=== PATIENT | male | born 1965 | race Caucasian/White ===

== ENCOUNTER → 2016-10-03 | Outpatient (CLI) | payer OTHER ==
[~2016-10-03] MED LIST: ASPIRIN81 MG PO; COMBIVENT U/D3 ML INH; DOCUSATE SODIU100 MG PO; LISINOPRIL10 MG PO; LOPRESSOR HCT1 EACH PO; NICOTINE TRANSD21 MG EXT; NITROGLYCERIN0.4 MG SL; PATANOL5 ML OP; POTASSIUM CHLO10 ME1 PO; SYMBICORT INH
--- NOTE | ~2016-10-03 | CR63 ---
[facility] A Service of [facility] & [facility] RADIOLOGY TEXT RESULTS PATIENT: MELINA RICHARDSON LOCATION: [facility] : 65 UNIT #: [id number] AGE: [address]: George Singh MD SEX: M ORDER DR: [id number] [facility] [address] [place], [place] [address] [id number] O MR#: [id number] Acc #: [id number] NAME: MELINA RICHARDSON : 1965 SEX: M STUDY DATE/TIME: 10/03/2016 15:42 UNIT: [facility] ROOM: STUDY DESCRIPTION: CR Chest 2 View Attending Physician: George Singh M.D. Referring Physician: George Singh M.D. Ordering Physician: George Singh M.D. Primary Care Physician: Yasir Portillo M.D. MEDICAL IMAGING REPORT This report is preliminary unless electronic signature is present EXAM PA and lateral chest radiograph, 10/03/2016 COMPARISON Portal radiograph 08/26/2014 HISTORY Heart failure, hypertension, annual followup. Heart failure symptoms beginning 2 years ago. PA and lateral views are obtained. The cardiovascular configuration is normal and the lungs are clear. CONCLUSION No active disease. Dictated by... Artemio Dotson M.D. THIS IS AN ELECTRONICALLY VERIFIED REPORT Artemio Dotson M.D. at 10/04/2016 9:31 AM DARNELL/adriana TD: 10/03/2016 21:51 JOB #: [id number] MEDICAL IMAGING REPORT Page 1 of 1 COPY
[2016-10-03 16:22] LABS: CALCIUM SERUM 8.9 mg/dL (8.4-10.2); GLOM FILT RATE Estimated 86.8 mL/min (>60)
== END | disposition home or self-care (01) ==
LOC: CLAB 15:25
PROVIDERS: Internal Medicine Cardiovascular Disease
DX: I50.9 Heart failure, unspecified (principal)
CPT/HCPCS: 36415; 71020; 80048; 83880